=== PATIENT | male | born 1960 | race Caucasian/White ===

== ENCOUNTER 2017-04-28 06:11 | Day surgery (SDC) | payer BC ==
[~2017-04-28] VITALS: Ht 185.4 cm; Wt 127.6 kg
[~2017-04-28 06:11] MED LIST: ALBUTEROL MDI IH; AMITRIPTYLINE100 M1 PO; CELEBREX100 MG PO; CELEBREX200 M1 PO; COZAAR50 M1 PO; CYCLOBENZAPRINE10 M1 PO; ELAVIL100 MG PO; ELAVIL50 MG PO; HUMIRA; LEVAQUIN750 M1 PO; LYRICA75 MG PO; NEXIUM40 MG PO; NORCO 5/3251 TAB PO; OMEPRAZOLE40 M2 PO; PENTASA500 MG/CAP PO; TAMSULOSIN HCL0.4 M1 PO; TYLENOL EXTRA500 M1 PO; ULTRAM50 M1 PO; VITAMIN B12 IM; VITAMIN B12 SC; VITAMIN B1250 MCG PO; VITAMIN D1000 UNIT PO; VITAMIN D3 PO; WELCHOL625 M1 PO; WELCHOL625 MG PO; [UNRECOGNIZED DRUG - CODE] PO
[2017-04-29 06:06] LABS: ANION GAP 12 mmol/L (0-20); BLOOD UREA NITROGEN 9 mg/dl (6-24); CALCIUM 8.7 mg/dl (8.5-10.5); CARBON DIOXIDE-VENOUS 29 mmol/L (22-32); CHLORIDE 104 mmol/l (96-110); CREATININE 1.12 mg/dl (0.60-1.30); GLUCOSE 117 mg/dL (70-110); POTASSIUM 4.5 mmol/L (3.7-5.1); SODIUM 140 mmol/L (135-145); eGFR VALUE FOR BLACK 85 mL/Min
[2017-04-29] MEDS ORDERED: NORCO 5-325 TA1 EACH PO (09:19)
[2017-04-29] MEDS ORDERED: TYLENOL325 M2 PO (09:22)
[2017-04-29] MEDS ORDERED: TUMS200 MG PO (09:23)
[2017-04-29] MEDS ORDERED: SENOKOT-S TABL1 EACH PO (09:24)
[2017-04-29] MEDS ORDERED: MIRALAX17 G2 PO (09:25)
[2017-04-29 11:00] LABS: BASO % 0.2 % (0-2); EOS % 0.1 % (0-7); HCT-HEMATOCRIT 40.7 % (36.0-53.5); HGB-HEMOGLOBIN 13.8 gm/dl (13.5-17.0); IMMATURE GRANULOCYTES ABSOLUTE 0.04 tho/cmm (0-0.03); IMMATURE GRANULOCYTES PERCENT 0.3 % (0-0.3); LYMPH % 23.1 % (20-45); LYMPH ABSOLUTE COUNT 3.2 tho/cmm (0.8-4.5); MCH (MEAN CORPUSCULAR HGB) 30.9 pg (28.0-32.0); MCHC MEAN CORPUSCULAR HGB CONC 33.9 % (32.0-36.0); MCV (MEAN CELL VOLUME) 91.3 fl (82.0-96.0); MEAN PLATELET VOLUME 11.2 cmc (9.4-12.4); MONO % 9.6 % (0-12); MONOCYTE ABSOLUTE COUNT 1.3 tho/cmm (0.0-1.2); NEUTROPHIL ABSOLUTE COUNT 9.3 tho/cmm (1.6-8.0); NEUTROPHIL-AUTOMATED 9.3 tho/cmm (1.6-8.0); NEUTROPHILS % 66.7 % (40-80); PLATELET COUNT 160 tho/cmm (150-450); RED BLOOD COUNT 4.46 mil/cmm (4.40-5.70); RED CELL DISTRIBUTION WIDTH 13.4 % (12.4-16.4)
== END 2017-04-29 09:50 ==
LOC: SRG 06:11 → SHSB 06:11 → ORE 08:05 → PACU 10:04 → 5EB 11:45 → SRG 04-29 09:50
PROVIDERS: Neurological Surgery
PROC: 01NB0ZZ Release Lumbar Nerve, Open Approach (ICD-10-PCS; principal; 2017-04-28)
DX: M48.06 Spinal stenosis, lumbar region (principal); M54.10 Radiculopathy, site unspecified; I73.9 Peripheral vascular disease, unspecified; I10 Essential (primary) hypertension; E78.5 Hyperlipidemia, unspecified; F32.9 Major depressive disorder, single episode, unspecified; K21.9 Gastro-esophageal reflux disease without esophagitis; F17.210 Nicotine dependence, cigarettes, uncomplicated; Z79.1 Long term (current) use of non-steroidal anti-inflammatories (NSAID); Z79.899 Other long term (current) drug therapy; Z88.5 Allergy status to narcotic agent; Z88.8 Allergy status to other drugs, medicaments and biological substances; Z91.012 Allergy to eggs
CPT/HCPCS: G8978-GP-CH; G8979-GP-CH; G8980-GP-CH; G8987-GO-CI; G8988-GO-CI; G8989-GO-CI; J0690; J1170; J1650; J3010